=== PATIENT | female | born 1950 | race Caucasian/White ===

== ENCOUNTER 2017-11-05 09:43 | Outpatient (CLI) | payer MEDICARE, OTHER ==
[~2017-11-05 09:43] MED LIST: Iopamidol 370 76% 100 ML VIAL ONE
--- NOTE | 2017-11-05 12:52 | CT ---
CONTRAST ENHANCED CTA CAROTID ARTERIES: DATE: 11/05/17. COMPARISON: Comparison is made to a previous exam from 10/22/16. HISTORY: Occlusion or stenosis of the carotid arteries, I65.8. Contrast-enhanced CTA of carotid arteries performed. The patient states that she had an ultrasound d one in the doctor's office which showed blockage of the right carotid artery. FINDINGS: Contrast-enhanced CTA of the carotid arteries performed. The aortic arch is unremarkable. The right brachiocephalic artery is patent. The patient has a dominant right vertebral artery. No significan t left vertebral artery. The right vertebral artery provides retrograde flow into the distal left ve rtebral artery as well as all of the flow into the basilar artery. The right and left subclavian arteries are patent. The left common carotid artery is patent. Some postsurgical changes are seen in the left distal CCA. The left carotid bulb and left ICA are patent. RIGHT CAROTID: The right common carotid artery is patent. There is calcified and noncalcified plaque in the proxima l portion of the right ICA resulting in approximately 40-50% right ICA stenosis at the origin. This has not significantly changed since the previous comparison CTA from approximately 1 year earlier. IMPRESSION: Approximately 50% right internal carotid artery origin stenosis. POS: [facility]
== END 2017-11-05 09:44 | disposition home or self-care (01) ==
LOC: CT 09:43
PROVIDERS: ATTEND Thoracic Surgery (Cardiothoracic Vascular Surgery)
DX: I65.8 Occlusion and stenosis of other precerebral arteries (principal); I65.21 Occlusion and stenosis of right carotid artery
CPT/HCPCS: 70498

== ENCOUNTER 2018-10-05 09:07 | Outpatient (CLI) | payer MEDICARE ==
--- NOTE | 2018-10-05 10:26 | RAD ---
RIGHT KNEE FOUR VIEWS: History: 68-year-old female with history of knee pain. FINDINGS: Mild degenerative and osteoarthrosis changes. No fracture or dislocation. IMPRESSION: Degenerative changes without fracture or dislocation. POS: [facility]
--- NOTE | 2018-10-05 10:33 | RAD ---
LEFT KNEE 4 VIEWS: HISTORY: A 68-year-old female with a history of left knee pain. FINDINGS: Tricompartment degenerative and osteoarthrosis changes. No acute fracture or dislocation. IMPRESSION: Degenerative changes without fracture or dislocation. POS: [facility]
== END 2018-10-05 09:08 | disposition home or self-care (01) ==
LOC: BICRAD 09:07
PROVIDERS: ATTEND Specialist
DX: M25.561 Pain in right knee (principal); M25.562 Pain in left knee; M17.0 Bilateral primary osteoarthritis of knee; I73.9 Peripheral vascular disease, unspecified; E11.00 Type 2 diabetes mellitus with hyperosmolarity without nonketotic hyperglycemic-hyperosmolar coma (NKHHC); E78.5 Hyperlipidemia, unspecified; I10 Essential (primary) hypertension; E55.9 Vitamin D deficiency, unspecified
CPT/HCPCS: 36415; 80053; 80061; 82306; 83036; 84550; 85025

== ENCOUNTER 2018-11-17 08:58 | Outpatient (CLI) | payer MEDICARE ==
--- NOTE | 2018-11-17 09:31 | RAD ---
CERVICAL SPINE THREE VIEWS: History: Cervical stenosis. Neck pain. FINDINGS: Cervical vertebrae maintain normal height and alignment. There are moderate degenerative changes pres ent. Loss of disc space seen at C4-5, C5-6, C6-7. Hypertrophic changes are noted at these levels with anterior osteophytes and posterior spondylosis, most pronounced at C5-6 and C6-7. There is facet hyp ertrophy. CT may be a benefit to better assess spinal canal and foraminal encroachment. IMPRESSION: Moderate degenerative changes of the midcervical spine most prominent at C5-6 and C6-7 as described. POS: [facility]
== END 2018-11-17 08:59 | disposition home or self-care (01) ==
LOC: BICRAD 08:58
PROVIDERS: ATTEND Specialist
DX: M48.02 Spinal stenosis, cervical region (principal); M47.812 Spondylosis without myelopathy or radiculopathy, cervical region
CPT/HCPCS: 72040

== ENCOUNTER 2018-12-04 11:48 | Outpatient (CLI) | payer MEDICARE ==
--- NOTE | 2018-12-04 14:17 | MRI ---
NONCONTRAST MRI CERVICAL SPINE: DATE: 12/04/2018. HISTORY: Cervical neck pain for yeas. Spinal stenosis. The patient states neck pain radiates to bilateral sh oulders and down arms. FINDINGS: There is mild cerebellar volume loss seen at the base of the brain. Cervicomedullary junction has a normal appearance. There is a mucous retention cyst partially visualized in the right maxillary antrum. There are scattered degenerative changes in the cervical spine with mild end plate degenerative brown es at the C5-6 and C6-7 levels. C2-3 level: There is minimal disk-osteophyte complex, central spinal canal and neural foramen are wi judith patent. C3-4 level: There is a mild disk-osteophyte complex with only slight effacement of the ventral subar achnoid space. There is no significant narrowing of the central spinal canal, and the neural foramin a are patent. C4-5 level: There is loss of intervertebral disk height. There is a broad-based disk-osteophyte com plex present. There is narrowing of the ventral subarachnoid space with slight flattening of the ant erior aspect of the spinal cord, but normal signal intensity present in the spinal cord. Neural fora bryan are patent. C5-6 level: There is loss of intervertebral disk height. There is a broad-based disk-osteophyte com plex as well as uncinate process hypertrophy greater on the right. There is moderate narrowing of th e central spinal canal with mild to moderate bilateral neural foraminal narrowing. There is flatteni ng of the anterior aspect of the spinal cord predominantly centrally and right anterolateral aspect o f the spinal cord, but normal signal intensity is present in the spinal cord at this level. C6-7 level: There is mild loss of intervertebral disk height. There is a broad-based disk-osteophyt e complex present. There is resultant mild narrowing of the central spinal canal. Right neural fora men is patent, but there is mild to moderate left-sided neural foraminal narrowing. C7-T1 level: There is a mild disk-osteophyte complex which narrows the ventral subarachnoid space. Facet degenerative changes are seen on the right. There is only slight effacement of the ventral sub arachnoid space of the central canal. The neural foramina are patent. T1-2 level: There is a broad-based disk-osteophyte complex with left paracentral disk protrusion. T his does narrow the ventral subarachnoid space without significant narrowing of the central spinal ca nal. Neural foramina are patent. Paravertebral soft tissues have a normal MRI appearance. IMPRESSION: Mild multilevel degenerative changes seen throughout the cervical spine as described above. POS: [facility]
== END 2018-12-04 11:49 | disposition home or self-care (01) ==
LOC: BICMRI 11:48
PROVIDERS: ATTEND Specialist
DX: M48.02 Spinal stenosis, cervical region (principal); M47.812 Spondylosis without myelopathy or radiculopathy, cervical region
CPT/HCPCS: 72141

== ENCOUNTER 2019-01-07 08:57 | Outpatient (CLI) | payer MEDICARE | END 2019-01-07 08:58 | disposition home or self-care (01) | LOC: BICMAMMO 08:57 | PROVIDERS: ATTEND Specialist | DX: Z12.31 Encounter for screening mammogram for malignant neoplasm of breast (principal); R92.1 Mammographic calcification found on diagnostic imaging of breast; Z80.3 Family history of malignant neoplasm of breast | CPT/HCPCS: 77063; 77067 ==

== ENCOUNTER 2019-03-16 07:50 | Day surgery (SDC) | payer MEDICARE ==
[2019-03-15 17:37] VITALS: BMI 32.5
[2019-03-16] MEDS ORDERED: Clindamycin/D5W 900 mg/50 ml Premix Bag ONE (08:21)
[2019-03-16 08:29] LABS: #Basophils 0.1 thou/uL (0.0-0.2); #Eosinphils 0.2 thou/uL (0.0-0.7); #Lymphocytes 1.9 thou/uL (1.20-3.40); #Monocytes 0.5 thou/uL (0.11-0.59); #Neutrophils 5.3 thou/uL (1.40-6.50); %Basophils 0.7 % (0.0-1.0); %Lymphocytes 23.2 % (21.0-51.0); %Monocytes 6.7 % (0.0-10.0); %Neutrophils 66.4 % (42.0-75.0); Hemoglobin 12.1 g/dL (12.0-16.0); Mean Corpuscular Hemoglobin 30.1 pg (27.0-31.0); Mean Corpuscular Volume 88.7 fL (78.0-98.0); Platelet Count 357 thou/uL (130-400); RBC Distribution Width 12.6 % (11.5-14.5); Red Blood Cell (RBC) Count 4.01 mill/uL (4.20-5.40)
[2019-03-16 08:47] LABS: Anion Gap 13 mmol/L (10-20); BUN (Urea Nitrogen) 32 mg/dL (9.8-20.1); Calc. Creatinine Clearance 53 mL/min (70-130); Calcium 9.9 mg/dL (7.8-10.44); Carbon Dioxide 25 mmol/L (23-31); Chloride 107 mmol/L (98-107); Estimated GFR-MDRD 42; Glucose 114 mg/dL (80-115); Potassium 3.9 mmol/L (3.5-5.1); Sodium 141 mmol/L (136-145)
[2019-03-16] MEDS ORDERED: Protamine Sulfate 50 MG/5 ML VIAL ONE (08:59)
[2019-03-16] MEDS ORDERED: Bupivacaine HCl 0.5%/Epinephrine 1:200,000/PF 30 ml Vial ONE (08:59)
[2019-03-16] MEDS ORDERED: Heparin 5,000 UNITS/ML VIAL ONE (08:59)
[2019-03-16] MEDS ORDERED: Midazolam HCl 2 mg/2 ml Vial ONE (10:30)
[2019-03-16] MEDS ORDERED: Fentanyl 100 MCG/2 ML VIAL ONE (10:30)
[2019-03-16] MEDS ORDERED: Promethazine HCl 25 MG/ML VIAL ONE (12:35)
--- NOTE | 2019-03-16 14:50 | OP ---
DATE OF PROCEDURE: 03/16/2019 PREOPERATIVE DIAGNOSIS: Left common femoral artery pseudoaneurysm. POSTOPERATIVE DIAGNOSIS: Left common femoral artery pseudoaneurysm. PROCEDURE PERFORMED: Open repair of left common femoral artery pseudoaneurysm. ANESTHESIA: General endotracheal. ESTIMATED BLOOD LOSS: 100. SPECIMENS: None. DESCRIPTION OF PROCEDURE: After consent was obtained, the patient was brought to the operating room and placed in supine position on the operating table. Appropriate central line was placed and general endotracheal anesthesia was induced. The left groin was prepped and draped in usual sterile fashion. Skin incision was made over the pseudoaneurysm. Dissection down to the common femoral artery was made both with electrocautery and sharply. The femoral artery was controlled and clamped. The pseudoaneurysm was entered. Large amount of clot was evacuated. The site of aneurysm bleeding was noted and repaired with interrupted 5-0 Prolene sutures. There was also a side branch that was bleeding off the common femoral artery, which was clipped. Once good hemostasis been obtained, wound was copiously irrigated. Wound was then closed in layers and Dermabond applied to the skin. There was palpable pulse distal to our repair at completion. The patient tolerated the procedure well, was awakened, extubated, and transferred to the recovery room to be sent home later today. Job ID: [id number]
== END 2019-03-16 15:05 | disposition home or self-care (01) ==
LOC: SDC 07:50 → EDSTATUS 16:46
PROVIDERS: ATTEND Thoracic Surgery (Cardiothoracic Vascular Surgery)
PROC: 04QL0ZZ Repair Left Femoral Artery, Open Approach (ICD-10-PCS; principal; 2019-03-16)
DX: I72.4 Aneurysm of artery of lower extremity (principal); I25.10 Atherosclerotic heart disease of native coronary artery without angina pectoris; I10 Essential (primary) hypertension; E78.5 Hyperlipidemia, unspecified; E11.43 Type 2 diabetes mellitus with diabetic autonomic (poly)neuropathy; K31.84 Gastroparesis; Z88.0 Allergy status to penicillin; Z88.1 Allergy status to other antibiotic agents; Z88.5 Allergy status to narcotic agent; Z88.8 Allergy status to other drugs, medicaments and biological substances; Z91.040 Latex allergy status; Z91.048 Other nonmedicinal substance allergy status; Z91.018 Allergy to other foods; Z95.1 Presence of aortocoronary bypass graft; Z79.4 Long term (current) use of insulin; Z79.02 Long term (current) use of antithrombotics/antiplatelets; Z79.82 Long term (current) use of aspirin; Z79.899 Other long term (current) drug therapy
CPT/HCPCS: 36415; 80048; 85025; J0670; J1644; J2250; J2550; J2720; J3010; J3490

== ENCOUNTER 2020-01-17 07:14 | Outpatient (CLI) | payer MEDICARE ==
--- NOTE | 2020-01-17 09:20 | CT ---
Exam: CT ANGIOGRAM OF THE NECK: HISTORY: Abnormal carotid ultrasound. COMPARISON: 11/05/2017, 10/22/2016 TECHNIQUE: CT angiogram the neck is performed in the axial plane. Three-dimensional reformatted image s are submitted for interpretation. FINDINGS: Post contrast brain: No abnormal attenuation or pathologic enhancement. Sinuses: Mucus retention cyst in the right maxillary sinus. Adequate mastoid air cell aeration. Aerodigestive tract: Patent. No mucosal abnormality. Midline fatty raphae of the tongue preserved. Li mited evaluation of the oral cavity due to dental amalgam artifact. Epiglottis has a normal caliber. Preepiglottic fat is preserved. The supraglottic, glottic and subglottic larynx is unremarka ble. Paraspinal muscles: Symmetric attenuation. Salivary glands: Symmetric fatty atrophy of the parotid glands. Symmetric attenuation of the submandi bular glands. Thyroid gland: Unremarkable. Lymph nodes: No evidence of lymphadenopathy by size criteria. Cervical spine: Cervical spine vertebral body height is maintained. There is no fracture. There are v arying degrees of central canal stenosis and neural foraminal narrowing on the basis of degenerative change Upper mediastinum and lung apices: Chronic changes are noted. CT ANGIOGRAM: Aorta: Appropriate enhancement and luminal diameter in visualized aorta Right carotid: The innominate artery origin has appropriate enhancement and luminal diameter. The com mon carotid artery demonstrates short segment mild stenosis due to calcified and noncalcified plaque. There is moderate narrowing of the right carotid bifurcation and proximal internal carotid ar castillo due to calcified and noncalcified plaque. The mid to distal right internal carotid artery has appropriate enhancement and luminal diameter. Left carotid artery: The left carotid artery origin has appropriate enhancement and luminal diameter. The common carotid artery demonstrates mild narrowing in its mid to distal portion. There is evidence of a previous endarterectomy in the left carotid bifurcation and proximal internal carotid a rtery. No significant stenosis. The mid to distal internal carotid artery has appropriate enhancement and luminal diameter. Bilateral subclavian arteries are patent. The right vertebral artery is patent throughout its course in the neck. The left vertebral artery is occluded and is similar to the previous exam. IMPRESSION: 1. Left carotid endarterectomy changes. 2. No evidence of hemodynamically significant stenosis based upon NASCET criteria. Transcribed Date/Time: 01/17/2020 9:44 AM
[2020-01-17] MEDS ORDERED: Iopamidol 370 76% 100 ML VIAL ONE (13:48)
== END 2020-01-17 07:15 | disposition home or self-care (01) ==
LOC: CT 07:14
PROVIDERS: ATTEND Thoracic Surgery (Cardiothoracic Vascular Surgery)
DX: I65.8 Occlusion and stenosis of other precerebral arteries (principal); Z98.890 Other specified postprocedural states
CPT/HCPCS: 70498; 82565; Q9967

== ENCOUNTER 2021-05-02 08:45 | Outpatient (CLI) | payer MEDICARE | END 2021-05-02 08:46 | disposition home or self-care (01) | LOC: BICRAD 08:45 | PROVIDERS: ATTEND Specialist | DX: M25.571 Pain in right ankle and joints of right foot (principal); M25.572 Pain in left ankle and joints of left foot; M79.89 Other specified soft tissue disorders ==

== ENCOUNTER 2022-06-28 09:05 | Outpatient (CLI) | payer MEDICARE | END 2022-06-28 09:06 | disposition home or self-care (01) | LOC: LABBT 09:05 | PROVIDERS: ATTEND Surgery | DX: Z20.822 Contact with and (suspected) exposure to COVID-19 (principal) | CPT/HCPCS: 87811 ==

== ENCOUNTER 2022-06-28 10:34 | Outpatient (CLI) | payer MEDICARE | END 2022-06-28 10:35 | disposition home or self-care (01) | LOC: DTY/OP 10:34 | PROVIDERS: ATTEND Surgery | DX: E66.01 Morbid (severe) obesity due to excess calories (principal); Z20.822 Contact with and (suspected) exposure to COVID-19 | CPT/HCPCS: 87811; 97802 ==

== ENCOUNTER 2022-07-02 08:59 | Outpatient (CLI) | payer MEDICARE | END 2022-07-02 09:00 | disposition home or self-care (01) | LOC: RAD 08:59 | PROVIDERS: ATTEND Surgery | DX: K21.9 Gastro-esophageal reflux disease without esophagitis (principal); K44.9 Diaphragmatic hernia without obstruction or gangrene | CPT/HCPCS: 74220 ==

== ENCOUNTER 2022-08-15 09:24 | Outpatient (CLI) | payer MEDICARE ==
[2022-08-15 11:05] LABS: ALT (SGPT) 41 U/L (8-55); AST (SGOT) 29 U/L (5-34); Albumin 4.1 g/dL (3.4-4.8); Alkaline Phosphatase 101 U/L (40-110); Anion Gap 13 mmol/L (10-20); BUN (Urea Nitrogen) 34 mg/dL (9.8-20.1); Bilirubin, Total 0.5 mg/dL (0.2-1.2); Calc. Creatinine Clearance 0 mL/min (70-130); Calcium 9.6 mg/dL (7.8-10.44); Carbon Dioxide 24 mmol/L (23-31); Chloride 110 mmol/L (98-107); Estimated GFR 55; Globulin 2.7 g/dL (2.4-3.5); Glucose 129 mg/dL (83-110); Potassium 4.5 mmol/L (3.5-5.1); Protein, Total 6.8 g/dL (5.8-8.1); Sodium 142 mmol/L (136-145)
[2022-08-15 11:06] LABS: #Eosinphils 0.2 10x3/uL (0.0-0.5); #Monocytes 0.5 10x3/uL (0.0-1.1); #Neutrophils 3.6 10x3/uL (1.5-8.4); %Basophils 0.7 % (0.0-2.0); %Eosinophils 3.5 % (0.0-6.0); %Monocytes 8.2 % (0.0-10.0); %Neutrophils 65.2 % (40.0-75.0); Mean Corpuscular Volume 87.9 fl (81.6-98.3); Mean Platelet Volume 9.1 fl (7.4-10.4); Platelet Count 239 10x3/uL (150-450); RBC Distribution Width 12.6 % (11.5-14.5); Red Blood Cell (RBC) Count 4.48 10x6/uL (3.90-5.03); White Blood Cell (WBC) Count 5.5 10x3/uL (3.5-10.5)
[2022-08-15 14:04] LABS: Hemoglobin A1c 7.1 % (4.0-6.0)
== END 2022-08-15 09:25 | disposition home or self-care (01) ==
LOC: LABBT 09:24
PROVIDERS: ATTEND Surgery
DX: Z01.818 Encounter for other preprocedural examination (principal); E66.01 Morbid (severe) obesity due to excess calories; Z20.822 Contact with and (suspected) exposure to COVID-19
CPT/HCPCS: 71046; 80053; 83036; 85025; 87811

== ENCOUNTER 2022-08-15 09:45 | Inpatient (IN) | payer MEDICARE ==
[2022-08-19 13:59] VITALS: BMI 36.6
[2022-08-20] MEDS ORDERED: EPINEPHrine 1 MG/ML AMP ONE (09:16)
[2022-08-20] MEDS ORDERED: Bupivacaine 0.25% HCL 30 ML VIAL ONE (09:16)
== END 2022-08-20 09:58 | disposition home or self-care (01) | DRG 641 ==
LOC: SURG A 08-20 08:04
PROVIDERS: ADMIT Surgery; ATTEND Surgery
DX: E66.01 Morbid (severe) obesity due to excess calories (principal); Z53.9 Procedure and treatment not carried out, unspecified reason; Z20.822 Contact with and (suspected) exposure to COVID-19; E11.9 Type 2 diabetes mellitus without complications; E78.5 Hyperlipidemia, unspecified; G47.30 Sleep apnea, unspecified; Z68.36 Body mass index [BMI] 36.0-36.9, adult; Z90.49 Acquired absence of other specified parts of digestive tract; Z90.710 Acquired absence of both cervix and uterus; Z95.5 Presence of coronary angioplasty implant and graft; Z98.42 Cataract extraction status, left eye; Z83.3 Family history of diabetes mellitus; Z82.49 Family history of ischemic heart disease and other diseases of the circulatory system; Z83.511 Family history of glaucoma; Z82.3 Family history of stroke; Z80.6 Family history of leukemia; Z79.899 Other long term (current) drug therapy; Z79.82 Long term (current) use of aspirin; Z79.4 Long term (current) use of insulin; Z79.84 Long term (current) use of oral hypoglycemic drugs
CPT/HCPCS: J0171; J7620; S0020

== ENCOUNTER 2022-09-05 09:55 | Outpatient (CLI) | payer MEDICARE | END 2022-09-05 09:56 | disposition home or self-care (01) | LOC: LABBT 09:55 | PROVIDERS: ATTEND Surgery | DX: K44.9 Diaphragmatic hernia without obstruction or gangrene (principal); E66.01 Morbid (severe) obesity due to excess calories; Z20.822 Contact with and (suspected) exposure to COVID-19 | CPT/HCPCS: 87811 ==

== ENCOUNTER 2022-09-05 10:15 | Inpatient (IN) | payer MEDICARE ==
[2022-09-10] MEDS ORDERED: Levofloxacin 500 mg/D5W 100 ml Premix Bag ONE (06:25)
[2022-09-10] MEDS ORDERED: Lidocaine 1% MPF 2 ML VIAL ONE (06:25)
[2022-09-10] MEDS ORDERED: SUGAMMADEX SODIUM 200 MG/2 ML VIAL ONE (06:49)
[2022-09-10] MEDS ORDERED: fentaNYL Citrate/PF 100 MCG/2 ML SYRINGE ONE (06:49)
[2022-09-10 06:55] LABS: #Basophils 0.1 thou/uL (0.0-0.2); #Eosinphils 0.3 thou/uL (0.0-0.7); #Lymphocytes 1.4 thou/uL (1.20-3.40); #Monocytes 0.6 thou/uL (0.11-0.59); #Neutrophils 4.7 thou/uL (1.40-6.50); %Basophils 0.8 % (0.0-1.0); %Eosinophils 3.8 % (0.0-10.0); %Lymphocytes 19.8 % (21.0-51.0); %Neutrophils 66.7 % (42.0-75.0); Hemoglobin 12.6 g/dL (12.0-16.0); Mean Corpuscular HGB CONC 32.1 g/dL (32.0-36.0); Mean Corpuscular Hemoglobin 29.5 pg (27.0-31.0); Mean Corpuscular Volume 91.9 fL (78.0-98.0); Mean Platelet Volume 6.7 fL (7.4-10.4); Platelet Count 259 thou/uL (130-400); RBC Distribution Width 12.4 % (11.5-14.5); Red Blood Cell (RBC) Count 4.26 mill/uL (4.20-5.40)
[2022-09-10] MEDS ORDERED: EPINEPHrine 1 MG/ML AMP ONE (06:55)
[2022-09-10] MEDS ORDERED: Bupivacaine 0.25% HCL 30 ML VIAL ONE (06:55)
[2022-09-10 07:01] LABS: Anion Gap 13 mmol/L (10-20); BUN (Urea Nitrogen) 32 mg/dL (9.8-20.1); Calc. Creatinine Clearance 64 mL/min (70-130); Calcium 9.3 mg/dL (7.8-10.44); Carbon Dioxide 23 mmol/L (23-31); Chloride 109 mmol/L (98-107); Estimated GFR 61; Glucose 76 mg/dL (83-110); Potassium 4.2 mmol/L (3.5-5.1); Sodium 141 mmol/L (136-145)
[2022-09-10] MEDS ORDERED: Phenylephrine 10 MG/ML VIAL ONE (07:35)
[2022-09-10] MEDS ORDERED: NEOSTIGMINE 3 MG/3 ML SYR 3 MG/3 ML SYRINGE ONE (07:47)
[2022-09-10] MEDS ORDERED: Rocuronium Bromide 10 MG/ML (10ML VIAL) ONE (07:47)
[2022-09-10] MEDS ORDERED: PROPOFOL 200 MG/20 ML VIAL ONE (07:47)
[2022-09-10] MEDS ORDERED: Glycopyrrolate 0.2 MG/ML 5 ML SYRINGE ONE (07:47)
[2022-09-10] MEDS ORDERED: Dexamethasone 20 MG/5 ML VIAL ONE (07:47)
[2022-09-10] MEDS ORDERED: Ondansetron PF 4 MG/2 ML Vial ONE (07:47)
[2022-09-10] MEDS ORDERED: Labetalol HCl 100 MG/20 ML VIAL ONE (07:47)
[2022-09-10] MEDS ORDERED: diphenhydrAMINE 50 MG/ML VIAL IM PRN (08:24)
[2022-09-10] MEDS ORDERED: Promethazine HCl 25 MG/ML VIAL IVPB PRN ×2 (08:24→08:31)
[2022-09-10] MEDS ORDERED: Ondansetron HCl/PF 4 MG/2 ML Vial IVP PRN ×2 (08:24→08:31)
[2022-09-10] MEDS ORDERED: diphenhydrAMINE 25 MG CAP PO PRN (08:24)
[2022-09-10] MEDS ORDERED: Ondansetron PF 4 MG/2 ML Vial IVP PRN ×2 (08:24→09:30)
[2022-09-10] MEDS ORDERED: diphenhydrAMINE 50 MG/ML VIAL IVP PRN ×2 (08:24→09:30)
[2022-09-10] MEDS ORDERED: Promethazine HCl 25 MG/ML VIAL IM PRN ×4 (08:24→09:30)
[2022-09-10] MEDS ORDERED: Naloxone HCl 0.4 mg/ml Vial IV PRN (08:24)
[2022-09-10] MEDS ORDERED: fentaNYL Citrate/PF 2,000 MCG in Sodium Chloride 0.9% 60 ML IV PRN (08:24)
[2022-09-10] MEDS ORDERED: Communication Order-Pharmacy FS SCH (08:30)
[2022-09-10] MEDS ORDERED: hydrALAZINE 20 MG/ML VIAL SLOW IVP PRN (09:30)
[2022-09-10] MEDS ORDERED: Dextrose 50% Abboject 50 ML SYRINGE SLOW IVP PRN (09:30)
[2022-09-10] MEDS ORDERED: Dextrose 5% in Water 1,000 ML IV PRN (09:30)
[2022-09-10] MEDS ORDERED: Promethazine HCl 25 MG/ML VIAL ONE (10:04)
[2022-09-10] MEDS ORDERED: Fentanyl 100 MCG/2 ML VIAL ONE (10:15)
[2022-09-10] MEDS ORDERED: hydrALAZINE 20 MG/ML VIAL ONE (10:15)
[2022-09-10 12:41] VITALS: BMI 36.8
[2022-09-10] MEDS: D5 1/2 NS w/20 mEq KCL 1,000 ML IV SCH (12:56)
[2022-09-10] MEDS ORDERED: FLU VACC QS2022-23(65YR UP)/PF 240 MCG/0.7 ML SYRINGE IM ONE (18:00)
[2022-09-10] MEDS: Metoprolol Tartrate 50 MG TAB PO SCH (21:06)
[2022-09-10] MEDS: HumaLOG 300 UNITS/3 ML VIAL SC PRN (21:12)
[2022-09-11] MEDS: D5 1/2 NS w/20 mEq KCL 1,000 ML IV SCH ×2 (00:21→07:28)
[2022-09-11 05:49] LABS: #Lymphocytes 1.1 thou/uL (1.20-3.40); #Neutrophils 8.4 thou/uL (1.40-6.50); %Basophils 0.1 % (0.0-1.0); %Eosinophils 0.1 % (0.0-10.0); %Lymphocytes 10.5 % (21.0-51.0); %Monocytes 9.8 % (0.0-10.0); %Neutrophils 79.4 % (42.0-75.0); Hemoglobin 11.9 g/dL (12.0-16.0); Mean Corpuscular HGB CONC 31.9 g/dL (32.0-36.0); Mean Corpuscular Hemoglobin 29.6 pg (27.0-31.0); Mean Corpuscular Volume 92.8 fL (78.0-98.0); Mean Platelet Volume 6.9 fL (7.4-10.4); Platelet Count 251 thou/uL (130-400); RBC Distribution Width 12.6 % (11.5-14.5); Red Blood Cell (RBC) Count 4.03 mill/uL (4.20-5.40); White Blood Cell (WBC) Count 10.5 thou/uL (4.8-10.8)
[2022-09-11 06:03] LABS: Anion Gap 12 mmol/L (10-20); BUN (Urea Nitrogen) 25 mg/dL (9.8-20.1); Calc. Creatinine Clearance 59 mL/min (70-130); Calcium 9.1 mg/dL (7.8-10.44); Carbon Dioxide 24 mmol/L (23-31); Chloride 105 mmol/L (98-107); Estimated GFR 54; Glucose 238 mg/dL (83-110); Potassium 4.9 mmol/L (3.5-5.1); Sodium 136 mmol/L (136-145)
[2022-09-11] MEDS ORDERED: traMADol HCl 50 MG TAB PO PRN (06:36)
[2022-09-11] MEDS: HumaLOG 300 UNITS/3 ML VIAL SC PRN (07:01)
[2022-09-11] MEDS ORDERED: Pantoprazole 40 MG VIAL IVP SCH (09:00)
[2022-09-11] MEDS ORDERED: Empagliflozin 25 MG TAB PO SCH (09:00)
[2022-09-11] MEDS ORDERED: Colchicine 0.6 MG TAB PO SCH (09:00)
[2022-09-11] MEDS ORDERED: Enoxaparin Sodium 40 MG/0.4 ML SYRINGE SC SCH (09:00)
[2022-09-11] MEDS ORDERED: Non-Formulary Item 1 EACH (Brinzolamide/Brimonidine Tart [Simbrinza 1%/0.2% Ophth Susp] 1 R EYE SCH ×2 (09:00)
[2022-09-11] MEDS ORDERED: Non-Formulary Item 1 EACH (Dapagliflozin Propanediol [Farxiga] 10 MG Tablet) PO SCH (09:00)
[2022-09-11] MEDS: Metoprolol Tartrate 50 MG TAB PO SCH (09:39)
[2022-09-11 12:46] VITALS: BP 127/77; TEMP 97.7
== END 2022-09-11 14:40 | disposition home or self-care (01) | DRG 621 ==
LOC: SURG A 09-10 05:39 → SJJU 09-10 12:05
PROVIDERS: ADMIT Surgery; ATTEND Surgery
PROC: 0DB64Z3 Excision of Stomach, Percutaneous Endoscopic Approach, Vertical (ICD-10-PCS; principal; 2022-09-10)
PROC: 0BQT4ZZ Repair Diaphragm, Percutaneous Endoscopic Approach (ICD-10-PCS; 2022-09-10)
PROC: 8E0W4CZ Robotic Assisted Procedure of Trunk Region, Percutaneous Endoscopic Approach (ICD-10-PCS; 2022-09-10)
DX: E66.01 Morbid (severe) obesity due to excess calories (principal); Z20.822 Contact with and (suspected) exposure to COVID-19; Z68.36 Body mass index [BMI] 36.0-36.9, adult; I10 Essential (primary) hypertension; K44.9 Diaphragmatic hernia without obstruction or gangrene; E78.5 Hyperlipidemia, unspecified; E11.65 Type 2 diabetes mellitus with hyperglycemia; G47.30 Sleep apnea, unspecified; E78.00 Pure hypercholesterolemia, unspecified; E11.43 Type 2 diabetes mellitus with diabetic autonomic (poly)neuropathy; K31.84 Gastroparesis; I25.10 Atherosclerotic heart disease of native coronary artery without angina pectoris; Z79.899 Other long term (current) drug therapy; Z79.4 Long term (current) use of insulin; Z79.02 Long term (current) use of antithrombotics/antiplatelets; Z90.49 Acquired absence of other specified parts of digestive tract; Z90.89 Acquired absence of other organs; Z90.712 Acquired absence of cervix with remaining uterus; Z98.42 Cataract extraction status, left eye; Z83.3 Family history of diabetes mellitus; Z82.3 Family history of stroke; Z80.3 Family history of malignant neoplasm of breast; Z80.6 Family history of leukemia; Z82.49 Family history of ischemic heart disease and other diseases of the circulatory system; Z98.890 Other specified postprocedural states; Z95.1 Presence of aortocoronary bypass graft
CPT/HCPCS: 36415; 36416; 80048; 85025; 88307; 93005; 93010; C9113; J0171; J0360; J1100; J1650; J1815; J1956; J2370; J2405; J2550; J2704; J3010; J3480; S0020

== ENCOUNTER 2022-12-19 09:45 | Outpatient (CLI) | payer MEDICARE | END 2022-12-19 09:46 | disposition home or self-care (01) | LOC: BICMAMMO 09:45 | PROVIDERS: ATTEND Specialist | DX: Z12.31 Encounter for screening mammogram for malignant neoplasm of breast (principal); R92.1 Mammographic calcification found on diagnostic imaging of breast; M85.89 Other specified disorders of bone density and structure, multiple sites; M12.39 Palindromic rheumatism, multiple sites; Z80.3 Family history of malignant neoplasm of breast; Z86.018 Personal history of other benign neoplasm | CPT/HCPCS: 77063; 77067; 77080 ==

== ENCOUNTER 2023-04-05 10:39 | Inpatient (IN) | payer MEDICARE ==
[2023-04-05 12:04] LABS: #Eosinphils 0.1 thou/uL (0.0-0.7); #Lymphocytes 1.9 thou/uL (1.20-3.40); #Monocytes 0.8 thou/uL (0.11-0.59); #Neutrophils 5.5 thou/uL (1.40-6.50); %Basophils 0.4 % (0.0-1.0); %Lymphocytes 22.3 % (21.0-51.0); %Neutrophils 66.4 % (42.0-75.0); Hemoglobin 12.1 g/dL (12.0-16.0); Mean Corpuscular HGB CONC 33.5 g/dL (32.0-36.0); Mean Corpuscular Hemoglobin 30.5 pg (27.0-31.0); Mean Platelet Volume 6.5 fL (7.4-10.4); Platelet Count 296 10x3/uL (130-400); RBC Distribution Width 11.3 % (11.5-14.5); Red Blood Cell (RBC) Count 3.96 mill/uL (4.20-5.40); White Blood Cell (WBC) Count 8.3 10x3/uL (4.8-10.8)
[2023-04-05] MEDS ORDERED: Iopamidol 370 76% 100 ML VIAL ONE (12:15)
[2023-04-05 12:30] LABS: ALT (SGPT) 18 U/L (8-55); AST (SGOT) 22 U/L (5-34); Albumin 3.8 g/dL (3.4-4.8); Alkaline Phosphatase 89 U/L (40-110); Anion Gap 16 mmol/L (10-20); BUN (Urea Nitrogen) 37 mg/dL (9.8-20.1); Bilirubin, Total 0.5 mg/dL (0.2-1.2); Calc. Creatinine Clearance 0 mL/min (70-130); Calcium 10.5 mg/dL (7.8-10.44); Carbon Dioxide 29 mmol/L (23-31); Chloride 100 mmol/L (98-107); Estimated GFR 68; Globulin 3.3 g/dL (2.4-3.5); Glucose 84 mg/dL (83-110); Lipase 17 U/L (8-78); Potassium 3.2 mmol/L (3.5-5.1); Protein, Total 7.1 g/dL (5.8-8.1); Sodium 142 mmol/L (136-145)
[2023-04-05 13:01] LABS: CKMB 1.5 ng/mL (0-6.6)
[2023-04-05] MEDS ORDERED: Nitroglycerin 2% Ointment 1 INCH/1 GM Packet ONE (13:23)
[2023-04-05] MEDS ORDERED: Potassium Chloride 20 MEQ TAB ONE (13:23)
[2023-04-05] MEDS ORDERED: Aspirin Chewable 81 MG TAB ONE (13:23)
[2023-04-05 17:24] LABS: Critical Call Chem Troponin I DECREASE; Troponin I 0.302 ng/mL (< 0.028)
[2023-04-05] MEDS ORDERED: Acetaminophen 325 MG TAB PO PRN (18:55)
[2023-04-05 20:00] LABS: Troponin I 0.309 ng/mL (< 0.028)
[2023-04-05] MEDS: Atorvastatin Calcium 40 MG TAB PO SCH (21:11)
[2023-04-05] MEDS: Metoprolol Tartrate 25 MG TAB PO SCH (21:11)
[2023-04-05] MEDS: Valsartan 80 MG TAB PO SCH (21:12)
[2023-04-05] MEDS: Famotidine/PF 20 mg/2ml Vial SLOW IVP SCH (21:12)
[2023-04-05 23:30] VITALS: BMI 27.5
[2023-04-05] MEDS: Zolpidem Tartrate 5 MG TAB PO PRN (23:53)
[2023-04-06 04:44] LABS: Hemoglobin A1c 7.2 % (4.0-6.0)
[2023-04-06 05:00] LABS: Anion Gap 15 mmol/L (10-20); BUN (Urea Nitrogen) 33 mg/dL (9.8-20.1); Calc. Creatinine Clearance 54 mL/min (70-130); Calcium 9.2 mg/dL (7.8-10.44); Carbon Dioxide 28 mmol/L (23-31); Cardiac Risk 3.2 (Less than 4.5); Chloride 104 mmol/L (98-107); Cholesterol 68 mg/dl (< 200 Desired); Estimated GFR 67; Glucose 104 mg/dL (83-110); HDL Cholesterol 21 mg/dL (>60 Neg Risk); LDL Cholesterol, Calculated 23 mg/dL; Potassium 3.8 mmol/L (3.5-5.1); Sodium 143 mmol/L (136-145); Triglycerides 118 mg/dL (Less than 150); Uric Acid 9.7 mg/dL (2.6-6.0)
[2023-04-06] MEDS: Empagliflozin 25 MG TAB PO SCH (09:15)
[2023-04-06] MEDS: Clopidogrel Bisulfate 75 MG TAB PO SCH (09:15)
[2023-04-06] MEDS: Aspirin 81 mg Enteric Coated Tablet PO SCH (09:15)
[2023-04-06] MEDS: Metoprolol Tartrate 25 MG TAB PO SCH ×2 (09:15→20:44)
[2023-04-06] MEDS: Valsartan 80 MG TAB PO SCH ×2 (09:15→20:44)
[2023-04-06] MEDS: Ezetimibe 10 MG TAB PO SCH (09:15)
[2023-04-06] MEDS: Famotidine/PF 20 mg/2ml Vial SLOW IVP SCH ×2 (14:36→20:44)
[2023-04-06] MEDS: Atorvastatin Calcium 40 MG TAB PO SCH (20:43)
[2023-04-07] MEDS: Valsartan 80 MG TAB PO SCH ×2 (08:12→20:20)
[2023-04-07] MEDS: Ezetimibe 10 MG TAB PO SCH (08:13)
[2023-04-07] MEDS: Clopidogrel Bisulfate 75 MG TAB PO SCH (08:13)
[2023-04-07] MEDS: Empagliflozin 25 MG TAB PO SCH (08:13)
[2023-04-07] MEDS: Metoprolol Tartrate 25 MG TAB PO SCH ×2 (08:13→20:20)
[2023-04-07] MEDS: Aspirin 81 mg Enteric Coated Tablet PO SCH (08:13)
[2023-04-07] MEDS: Famotidine/PF 20 mg/2ml Vial SLOW IVP SCH ×2 (08:13→20:20)
[2023-04-07 11:25] LABS: #Eosinphils 0.1 thou/uL (0.0-0.7); #Monocytes 0.5 thou/uL (0.11-0.59); #Neutrophils 6.6 thou/uL (1.40-6.50); %Basophils 0.5 % (0.0-1.0); %Eosinophils 1.7 % (0.0-10.0); %Lymphocytes 11.8 % (21.0-51.0); %Neutrophils 79.4 % (42.0-75.0); Hemoglobin 10.5 g/dL (12.0-16.0); Mean Corpuscular HGB CONC 32.6 g/dL (32.0-36.0); Mean Corpuscular Hemoglobin 29.5 pg (27.0-31.0); Mean Corpuscular Volume 90.4 fl (78.0-98.0); Mean Platelet Volume 9.2 fL (7.4-10.4); Platelet Count 296 10x3/uL (130-400); RBC Distribution Width 11.8 % (11.5-14.5); Red Blood Cell (RBC) Count 3.56 mill/uL (4.20-5.40); White Blood Cell (WBC) Count 8.3 10x3/uL (4.8-10.8)
[2023-04-07 11:35] LABS: ALT (SGPT) 17 U/L (8-55); AST (SGOT) 28 U/L (5-34); Albumin 3.5 g/dL (3.4-4.8); Alkaline Phosphatase 78 U/L (40-110); Anion Gap 24 mmol/L (10-20); BUN (Urea Nitrogen) 21 mg/dL (9.8-20.1); Bilirubin, Total 0.5 mg/dL (0.2-1.2); Calc. Creatinine Clearance 59 mL/min (70-130); Calcium 9.3 mg/dL (7.8-10.44); Carbon Dioxide 17 mmol/L (23-31); Chloride 107 mmol/L (98-107); Estimated GFR 74; Globulin 3.1 g/dL (2.4-3.5); Glucose 76 mg/dL (83-110); Potassium 4.7 mmol/L (3.5-5.1); Protein, Total 6.6 g/dL (5.8-8.1); Sodium 143 mmol/L (136-145)
[2023-04-07] MEDS ORDERED: hydrALAZINE 20 MG/ML VIAL SLOW IVP SCH (11:45)
[2023-04-07 11:57] LABS: CKMB 1.1 ng/mL (0-6.6)
[2023-04-07] MEDS: Ondansetron PF 4 MG/2 ML Vial IVP PRN (12:47)
[2023-04-07] MEDS: Atorvastatin Calcium 40 MG TAB PO SCH (20:20)
[2023-04-07] MEDS: Zolpidem Tartrate 5 MG TAB PO PRN (22:29)
[2023-04-08] MEDS: Ezetimibe 10 MG TAB PO SCH (08:09)
[2023-04-08] MEDS: Metoprolol Tartrate 25 MG TAB PO SCH (08:09)
[2023-04-08] MEDS: Empagliflozin 25 MG TAB PO SCH (08:10)
[2023-04-08] MEDS: Famotidine/PF 20 mg/2ml Vial SLOW IVP SCH ×2 (08:10→20:55)
[2023-04-08] MEDS: Aspirin 81 mg Enteric Coated Tablet PO SCH (08:10)
[2023-04-08] MEDS: Clopidogrel Bisulfate 75 MG TAB PO SCH (08:10)
[2023-04-08] MEDS: Valsartan 80 MG TAB PO SCH ×2 (08:10→20:55)
[2023-04-08] MEDS: cloNIDine 0.1 MG TAB PO SCH ×3 (16:25→20:54)
[2023-04-08] MEDS: Ondansetron PF 4 MG/2 ML Vial IVP PRN (17:40)
[2023-04-08] MEDS: Apixaban 5 MG TAB PO SCH (20:55)
[2023-04-08] MEDS: Atorvastatin Calcium 40 MG TAB PO SCH (20:55)
[2023-04-09] MEDS: cloNIDine 0.1 MG TAB PO SCH ×10 (00:22→08:28)
[2023-04-09] MEDS: Metoprolol Tartrate 25 MG TAB PO SCH ×2 (00:23→08:30)
[2023-04-09 04:37] LABS: #Basophils 0.1 thou/uL (0.0-0.2); #Eosinphils 0.3 thou/uL (0.0-0.7); #Monocytes 0.4 thou/uL (0.11-0.59); %Eosinophils 5.8 % (0.0-10.0); %Lymphocytes 25.7 % (21.0-51.0); %Monocytes 8.4 % (0.0-10.0); %Neutrophils 58.1 % (42.0-75.0); Hemoglobin 9.9 g/dL (12.0-16.0); Mean Corpuscular HGB CONC 33.6 g/dL (32.0-36.0); Mean Corpuscular Hemoglobin 30.1 pg (27.0-31.0); Mean Corpuscular Volume 89.7 fl (78.0-98.0); Mean Platelet Volume 8.7 fL (7.4-10.4); Platelet Count 299 10x3/uL (130-400); RBC Distribution Width 11.7 % (11.5-14.5); Red Blood Cell (RBC) Count 3.29 mill/uL (4.20-5.40); White Blood Cell (WBC) Count 5.1 10x3/uL (4.8-10.8)
[2023-04-09 05:07] LABS: Anion Gap 15 mmol/L (10-20); BUN (Urea Nitrogen) 17 mg/dL (9.8-20.1); Calc. Creatinine Clearance 63 mL/min (70-130); Calcium 9.6 mg/dL (7.8-10.44); Carbon Dioxide 22 mmol/L (23-31); Chloride 107 mmol/L (98-107); Estimated GFR 78; Glucose 121 mg/dL (83-110); Potassium 4.2 mmol/L (3.5-5.1); Sodium 140 mmol/L (136-145)
[2023-04-09] MEDS ORDERED: NIFEdipine XL 60 MG TAB PO SCH (07:00)
[2023-04-09] MEDS: Ezetimibe 10 MG TAB PO SCH (08:27)
[2023-04-09] MEDS: Apixaban 5 MG TAB PO SCH ×2 (08:27→20:48)
[2023-04-09] MEDS: Valsartan 80 MG TAB PO SCH ×2 (08:27→20:49)
[2023-04-09] MEDS: Clopidogrel Bisulfate 75 MG TAB PO SCH (08:28)
[2023-04-09] MEDS: Empagliflozin 25 MG TAB PO SCH (08:28)
[2023-04-09] MEDS: Famotidine/PF 20 mg/2ml Vial SLOW IVP SCH ×2 (08:29→20:49)
[2023-04-09] MEDS: Sodium Chloride 0.45% 1,000 ML IV SCH ×3 (08:29→22:00)
[2023-04-09] MEDS: Atorvastatin Calcium 40 MG TAB PO SCH (20:48)
[2023-04-09] MEDS: Pantoprazole 40 MG VIAL IVP SCH (20:49)
[2023-04-09] MEDS: NIFEdipine XL 60 MG TAB PO SCH (20:49)
[2023-04-09] MEDS: Zolpidem Tartrate 5 MG TAB PO PRN (22:00)
[2023-04-10 04:11] LABS: #Eosinphils 0.3 thou/uL (0.0-0.7); #Monocytes 0.4 thou/uL (0.11-0.59); #Neutrophils 3.2 thou/uL (1.40-6.50); %Basophils 0.8 % (0.0-1.0); %Eosinophils 5.2 % (0.0-10.0); %Lymphocytes 23.4 % (21.0-51.0); %Monocytes 8.1 % (0.0-10.0); %Neutrophils 61.5 % (42.0-75.0); Hemoglobin 10.4 g/dL (12.0-16.0); Mean Corpuscular HGB CONC 34.2 g/dL (32.0-36.0); Mean Corpuscular Hemoglobin 29.5 pg (27.0-31.0); Mean Platelet Volume 8.7 fL (7.4-10.4); Platelet Count 332 10x3/uL (130-400); RBC Distribution Width 11.7 % (11.5-14.5); Red Blood Cell (RBC) Count 3.53 mill/uL (4.20-5.40); White Blood Cell (WBC) Count 5.2 10x3/uL (4.8-10.8)
[2023-04-10 04:14] LABS: Mean Corpuscular Volume 86.1 fl (78.0-98.0)
[2023-04-10] MEDS: Sodium Chloride 0.45% 1,000 ML IV SCH ×2 (06:12→14:24)
[2023-04-10 08:46] LABS: #Eosinphils 0.2 thou/uL (0.0-0.7); #Monocytes 0.5 thou/uL (0.11-0.59); #Neutrophils 3.8 thou/uL (1.40-6.50); %Basophils 0.7 % (0.0-1.0); %Eosinophils 4.2 % (0.0-10.0); %Lymphocytes 21.3 % (21.0-51.0); %Monocytes 7.8 % (0.0-10.0); Hemoglobin 10.4 g/dL (12.0-16.0); Mean Corpuscular HGB CONC 34.2 g/dL (32.0-36.0); Mean Corpuscular Hemoglobin 30.1 pg (27.0-31.0); Mean Corpuscular Volume 87.9 fl (78.0-98.0); Mean Platelet Volume 8.6 fL (7.4-10.4); Platelet Count 322 10x3/uL (130-400); RBC Distribution Width 11.7 % (11.5-14.5); Red Blood Cell (RBC) Count 3.46 mill/uL (4.20-5.40); White Blood Cell (WBC) Count 5.8 10x3/uL (4.8-10.8)
[2023-04-10] MEDS: cloNIDine 0.1 MG TAB PO SCH ×3 (09:52→09:54)
[2023-04-10] MEDS ORDERED: Lidocaine 1% PF 5 ML VIAL ONE (10:20)
[2023-04-10] MEDS: Empagliflozin 25 MG TAB PO SCH (11:43)
[2023-04-10] MEDS: Ezetimibe 10 MG TAB PO SCH (11:43)
[2023-04-10] MEDS: NIFEdipine XL 60 MG TAB PO SCH ×2 (11:43→21:25)
[2023-04-10] MEDS: Apixaban 5 MG TAB PO SCH ×2 (11:43→21:26)
[2023-04-10] MEDS: Famotidine/PF 20 mg/2ml Vial SLOW IVP SCH ×2 (11:43→21:24)
[2023-04-10] MEDS: Pantoprazole 40 MG VIAL IVP SCH ×2 (11:43→21:32)
[2023-04-10] MEDS: Valsartan 80 MG TAB PO SCH ×2 (11:43→21:26)
[2023-04-10] MEDS: Clopidogrel Bisulfate 75 MG TAB PO SCH (11:43)
[2023-04-10] MEDS: Polyethylene Glycol 3350 17 GM Packet PO SCH (11:44)
[2023-04-10] MEDS: Atorvastatin Calcium 40 MG TAB PO SCH (21:26)
[2023-04-10] MEDS: Zolpidem Tartrate 5 MG TAB PO PRN (21:31)
[2023-04-11 03:14] VITALS: TEMP 97.4
[2023-04-11 04:58] LABS: Anion Gap 14 mmol/L (10-20); BUN (Urea Nitrogen) 12 mg/dL (9.8-20.1); Calc. Creatinine Clearance 63 mL/min (70-130); Calcium 9.2 mg/dL (7.8-10.44); Carbon Dioxide 25 mmol/L (23-31); Chloride 104 mmol/L (98-107); Estimated GFR 78; Glucose 101 mg/dL (83-110); Potassium 3.6 mmol/L (3.5-5.1); Sodium 139 mmol/L (136-145)
[2023-04-11 07:44] VITALS: BP 148/65
[2023-04-11] MEDS: Clopidogrel Bisulfate 75 MG TAB PO SCH (08:35)
[2023-04-11] MEDS: Empagliflozin 25 MG TAB PO SCH (08:35)
[2023-04-11] MEDS: Apixaban 5 MG TAB PO SCH (08:35)
[2023-04-11] MEDS: NIFEdipine XL 60 MG TAB PO SCH (08:35)
[2023-04-11] MEDS: Ezetimibe 10 MG TAB PO SCH (08:35)
[2023-04-11] MEDS: Valsartan 80 MG TAB PO SCH (08:36)
[2023-04-11] MEDS: Pantoprazole 40 MG VIAL IVP SCH (08:36)
[2023-04-11] MEDS: Polyethylene Glycol 3350 17 GM Packet PO SCH (08:36)
[2023-04-11] MEDS: Famotidine/PF 20 mg/2ml Vial SLOW IVP SCH (08:37)
== END 2023-04-11 10:28 | disposition home or self-care (01) | DRG 282 ==
LOC: ERS 10:39 → 2NO 16:24
PROVIDERS: ADMIT Specialist; ATTEND Specialist
PROC: 0DJ08ZZ Inspection of Upper Intestinal Tract, Via Natural or Artificial Opening Endoscopic (ICD-10-PCS; principal; 2023-04-10)
DX: I48.92 Unspecified atrial flutter (principal); I21.A1 Myocardial infarction type 2; E87.6 Hypokalemia; I25.10 Atherosclerotic heart disease of native coronary artery without angina pectoris; I10 Essential (primary) hypertension; E11.43 Type 2 diabetes mellitus with diabetic autonomic (poly)neuropathy; K31.84 Gastroparesis; E78.5 Hyperlipidemia, unspecified; K21.9 Gastro-esophageal reflux disease without esophagitis; D64.9 Anemia, unspecified; K59.09 Other constipation; Z90.49 Acquired absence of other specified parts of digestive tract; Z98.84 Bariatric surgery status; Z90.89 Acquired absence of other organs; Z95.5 Presence of coronary angioplasty implant and graft; Z90.711 Acquired absence of uterus with remaining cervical stump; Z88.6 Allergy status to analgesic agent; Z88.5 Allergy status to narcotic agent; Z88.2 Allergy status to sulfonamides; Z88.8 Allergy status to other drugs, medicaments and biological substances; Z91.040 Latex allergy status; Z79.899 Other long term (current) drug therapy; Z79.02 Long term (current) use of antithrombotics/antiplatelets; Z79.82 Long term (current) use of aspirin; Z95.1 Presence of aortocoronary bypass graft; Z86.73 Personal history of transient ischemic attack (TIA), and cerebral infarction without residual deficits
CPT/HCPCS: 36415; 36416; 70450; 71045; 71275; 80048; 80053; 80061; 82310; 82553; 83036; 83690; 84484; 84550; 85025; 85379; 93005; 93306; 96372; C9113; J0360; J1650; J2405; J7050; Q9967; S0028

== ENCOUNTER 2023-05-13 09:30 | Outpatient (CLI) | payer MEDICARE | END 2023-05-13 09:31 | disposition home or self-care (01) | LOC: PET 09:30 | PROVIDERS: ATTEND Specialist | DX: R91.1 Solitary pulmonary nodule (principal) | CPT/HCPCS: 78815; A9552 ==